=== PATIENT | female | born 1975 | race Caucasian/White ===

== ENCOUNTER 2017-09-25 08:00 | Outpatient (CLI) | payer OTHER ==
[2017-09-25 13:04] LABS: BASOPHILS % (AUTO) 0.5 %; EOSINOPHILS # (AUTO) 0.2 10^3/uL (0.0-0.7); EOSINOPHILS % (AUTO) 2.6 %; HCT - HEMATOCRIT 42.8 % (37.0-47.0); HGB - HEMOGLOBIN 14.4 g/dL (12.0-16.0); LYMPHOCYTES # (AUTO) 2.5 10^3/uL (1.5-3.5); LYMPHOCYTES % (AUTO) 35.8 %; MEAN CORPUSCULAR HEMOGLOBIN 29.3 pg (27.0-31.0); MEAN CORPUSCULAR HGB CONC 33.6 g/dL (32.0-36.0); MEAN CORPUSCULAR VOLUME 87.4 fL (81.0-99.0); MEAN PLATELET VOLUME 9.4 fL (7.9-10.8); MONOCYTES # (AUTO) 0.7 10^3/uL (0.0-1.0); NEUTROPHILS # (AUTO) 3.6 10^3/uL (1.5-6.6); NEUTROPHILS % (AUTO) 51.1 %; NUCLEATED RED BLOOD CELLS AUTO 0.1 /100WBC; RED BLOOD COUNT 4.89 10^6/uL (4.20-5.40); RED CELL DISTRIBUTION WIDTH 13.3 % (12.0-15.0)
[2017-09-25 13:22] LABS: ALBUMIN/GLOBULIN RATIO 1.5 (1.0-2.2); BILIRUBIN,TOTAL 0.7 mg/dL (0.2-1.0); BUN - BLOOD UREA NITROGEN 11 mg/dL (6-20); CALCIUM 9.2 mg/dL (8.5-10.3); CARBON DIOXIDE - CO2 24 mmol/L (21-32); CHLORIDE 107 mmol/L (101-111); CHOL/HDL RATIO 4.9 (<4.4); CHOLESTEROL 167 mg/dL; CREATININE 0.6 mg/dL (0.4-1.0); GFR - MDRD 111 (>89); GLUCOSE 90 mg/dL (70-100); HDL CHOLESTEROL 34 mg/dL; LDL/HDL RATIO 3.3 (<4.4); POTASSIUM 3.9 mmol/L (3.5-5.0); SODIUM 138 mmol/L (135-145); TOTAL PROTEIN 7.6 g/dL (6.7-8.2); TRIGLYCERIDES 103 mg/dL; VLDL CHOLESTEROL 21 mg/dL
== END 2017-09-25 08:01 | disposition home or self-care (01) ==
LOC: LAB.WCP 08:00
PROVIDERS: ATTEND Family Medicine
DX: Z00.00 Encounter for general adult medical examination without abnormal findings (principal); E03.9 Hypothyroidism, unspecified
CPT/HCPCS: 36415; 80053; 80061; 84443; 85025

== ENCOUNTER 2017-10-09 11:35 | Outpatient (CLI) | payer OTHER ==
[2017-10-09 12:20] LABS: BASOPHILS % (AUTO) 0.8 %; BILIRUBIN,URINE NEGATIVE (NEGATIVE); EOSINOPHILS # (AUTO) 0.1 10^3/uL (0.0-0.7); EOSINOPHILS % (AUTO) 2.4 %; HCT - HEMATOCRIT 43.2 % (37.0-47.0); HGB - HEMOGLOBIN 14.9 g/dL (12.0-16.0); LYMPHOCYTES # (AUTO) 2.1 10^3/uL (1.5-3.5); LYMPHOCYTES % (AUTO) 32.7 %; MEAN CORPUSCULAR HEMOGLOBIN 29.9 pg (27.0-31.0); MEAN CORPUSCULAR HGB CONC 34.4 g/dL (32.0-36.0); MEAN CORPUSCULAR VOLUME 86.9 fL (81.0-99.0); MONOCYTES # (AUTO) 0.6 10^3/uL (0.0-1.0); MONOCYTES % (AUTO) 9.3 %; NEUTROPHILS # (AUTO) 3.5 10^3/uL (1.5-6.6); NEUTROPHILS % (AUTO) 54.8 %; NUCLEATED RED BLOOD CELLS AUTO 0.1 /100WBC; PH,URINE 5.5 PH (5.0-7.5); RED BLOOD COUNT 4.97 10^6/uL (4.20-5.40); RED CELL DISTRIBUTION WIDTH 13.6 % (12.0-15.0); UNCORRECTED WHITE BLOOD COUNT 6.4 x10^3/uL; WHITE BLOOD COUNT 6.4 x10^3/uL (4.8-10.8)
== END 2017-10-09 11:36 | disposition home or self-care (01) ==
LOC: LAB 11:35
PROVIDERS: ATTEND Obstetrics & Gynecology
DX: N87.9 Dysplasia of cervix uteri, unspecified (principal)
CPT/HCPCS: 36415; 81003; 85025

== ENCOUNTER 2017-10-11 08:12 | Day surgery (SDC) | payer OTHER ==
[2017-10-11] MEDS ORDERED: LACTATED RINGERS 1,000 ML IV ONE (08:15)
[2017-10-11 08:41] LABS: HCG UR QUAL NEGATIVE
[2017-10-11] MEDS ORDERED: MIDAZOLAM 2 MG/2 ML VIAL IVP ONE (11:15)
[2017-10-11] MEDS ORDERED: ONDANSETRON 4 MG/2 ML VIAL IVP ONE (11:15)
[2017-10-11] MEDS ORDERED: LIDOCAINE-MPF 2% 5 ML VIAL IM ONE (11:15)
[2017-10-11] MEDS ORDERED: PROPOFOL 200 MG/20 ML VIAL IVP ONE (11:15)
[2017-10-11] MEDS ORDERED: KETOROLAC 30 MG/ML VIAL IVP ONE (11:15)
[2017-10-11] MEDS ORDERED: DEXAMETHASONE 4 MG/ML VIAL IVP ONE (11:15)
[2017-10-11] MEDS ORDERED: fentaNYL 100 MCG/2 ML VIAL IVP ONE (11:15)
--- NOTE | 2017-10-11 11:23 | OPERATIVE REPORT ---
Operative Report - General Procedure Date: 10/11/17 Planned Procedure: LEEP Pre-Op Diagnosis: CIN2, Mirena IUD Procedure Performed: LEEP; Minena Remove & Replace Post Op Diagnosis: Same Await Path - Procedure Note Primary Surgeon: MD Pamela Anesthesia Provider: CARL Perez Anesthesia Technique: General ET tube Pathology: yes Estimated Blood Loss (mL): 10 Urine Output (mL): 100 Drain/Tube Type: Other (Str Cath) Complications: None
[2017-10-11 12:20] VITALS: BP 116/62
--- NOTE | 2017-10-11 16:35 | PROCEDURE REPORT ---
DATE OF PROCEDURE: 10/11/2017 00:00:00 PREDELIVERY DIAGNOSES 1. 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 2. Anxiety disorder. 3. Intrauterine device in place. POSTOPERATIVE DIAGNOSES 1. 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 2. Anxiety disorder. 3. Intrauterine device in place. 4. Await pathology. PROCEDURE: Loop electrosurgical excision procedure (LEEP)conization; removal and replacement of intrauterine device. SURGEON: Jamir Santiago MD, FACOG, FICS. ANESTHESIA PROVIDER: Carlin Perez, certified nurse annual giving manager. ANESTHESIA: General, ET tube placed. COMPLICATIONS: None. BLOOD LOSS: Minimal. DRAINS: None. URINE OUTPUT: Patient straight-catheterized prior to procedure of 100 mL of clear urine. FINDINGS 1. Close examination of the vulva and vagina finds no lesions indicative of PORTIA or VaIN. 2. Cervix is inflamed and everted. 3. Uterus prominent, maybe 5 weeks to 6 weeks' size. No lobulations. 4. Adnexa, no mass, mobile ovaries, normal size. SPECIMENS 1. Ectocervix anterior slice, posterior slice, and small side fragment. 2. Endocervix. 3. [id number] curettings. TECHNIQUE: Prior to surgery, we had a family and patient session. The mechanics of the procedure with its risks and benefits were all reviewed. All questions were answered. Consent signed, inclusive of removal and replacement of IUD. Patient was brought to the operating room and placed in supine position. She was uneventfully induced and intubated. She was then moved to the low dorsal lithotomy position. She was prepped and draped. A timeout briefing was done per protocol. Exam under anesthesia was conducted, see findings. A lateral side wall protector was inserted, followed by an electro-safe speculum. A medium sized shallow loop was then selected for ectocervical removal. Power was set at 60/ 60. The cervix was averted to the point that it could not be done in a single loop swipe. First with the anterior portion, a single pass was made. The specimen was marked at 12 o'clock with a stitch. This was repeated uneventfully in the posterior segment. Next, a deeper electrode was used to remove the endocervical canal en bloc, after which a curetting was done. We attempted to replace the previous Mirena IUD; however, it would twist in the canal. A new Mirena IUD applicator was brought to the field and inserted through the endocervical canal and then into the uterine cavity. The insertion tool was activated and the IUD expelled into the uterine cavity. Strings were trimmed to 2 cm. There was one final check of the biopsy site. It was hemostatically secure and estrogen styptic was applied. All instruments were removed. All sponge, needle, and instrument counts were confirmed as correct. Patient was uneventfully awakened from general anesthesia and taken to the recovery room in good condition. Patient was discharged home with instructions and followup appointment in 2 weeks. Discharge medications include: 1. Motrin. 2. [place]. 3. Colace. Patient will call back if she develops fevers, chills, abdominal pain, or foul discharge. JOB #: [id number] EXT JOB #:[id number]
--- NOTE | 2017-10-12 12:20 | HISTORY & PHYSICAL EXAMINATION ---
Chief Complaint - Chief Complaint Chief Complaint: Mrs. Acacia Soriano presents for a LEEP due to high-grade cervical Dysplasia History of Present Illness - Admitted From Admitted From:: Same day surgery admission only - History Obtained From Records Reviewed: Patient has no chronic disease history or cardiovascular disease. - History of Present Illness HPI Comment/Other: Mrs. Acacia Soriano is a 41-year-old woman who is documented HPV 16 and 18 and noted to have an abnormal Pap smear (ASCUS) that necessitated colposcopy. Colposcopy revealed high-grade dysplasia with biopsies consistent with SIMON-2. There was no extension into the canal. More complete diagnosis and treatment are required with high-grade dysplasia. LEEP procedure was selected. Patient has difficulty with anxiety and did not believe she could stay still during the procedure if done in the office. Therefore patient was admitted to same-day surgery for procedure under sedation/anesthesia. Natural history of HPV and precancerous and cancerous changes of the female genital tract was reviewed. All answers are all questions were answered. AC Brochures on LEEP procedure were given and reviewed. Anesthesia risk was explained by construction stonemason. History - Past Medical History Cardiovascular: reports: None Respiratory: reports: None Endocrine/Autoimmune: reports: HyPOthyroidism GI: reports: Ulcers : reports: None HEENT: reports: Chronic vision loss Psych: reports: Depression, Anxiety Musculoskeletal: reports: Chronic back pain Derm: reports: Eczema, Rosacea MRSA Hx?: No Meds/Allgy - Home Medications Home Medications: Ambulatory Orders Medication Instructions Recorded Confirmed Levothyroxine Sodium 50 mcg PO DAILY 10/09/17 10/11/17 - Allergies Allergies/Adverse Reactions: Allergies Allergy/AdvReac Type Severity Reaction Status Date / Time No Known Drug Allergies Allergy Verified 10/09/17 13:55 Issues/Core Measures - DVT/VTE - Prophylaxis Not Ordered - Low Risk: Very low risk VTE/DVT Prophylaxis med ordered at admit?: No Not Ordered - Medical Reason: Not indicated - Stroke - Rehab Assessment Rehab services assessment to be ordered?: No - AMI - Statin at Admit Aspirin Prescribed on Admit: No Physical Exam - Physical Exam General: positive: No acute distress, Anxious HEENT: positive: Atraumatic, EOMI, Moist mucous membranes, Dentition normal Neck: positive: Supple w/out meningeal sx, No adenopathy, Thyroid normal Cardiac: positive: Regular Rate, Normal pulses Resipratory: positive: Clear to ausultation ugo Abdomen: positive: Normal Bowel sounds, Other (Nontender, Obese) Female : positive: Normal external, Other (Biopsy wounds healing well) Neurologic: positive: Alert and Oriented X 3 PSYCH: positive: Anxious Assess/Plan - Patient Problems Active Problems Comments: Patient has biopsy documented high-grade dysplasia with high risk HPV serotyping. LEEP procedure or conization is required.Patient is very anxious and would not be able to comply with a office-based procedure. Therefore procedure was sedation was selected. This history and physical was done the day prior, [id number] September.Please correct the date
--- NOTE | 2017-10-12 13:22 | HISTORY & PHYSICAL EXAMINATION ---
DATE OF ADMISSION: 10/11/2017 DIAGNOSES 1. High-grade dysplasia with SIMON 2 on biopsy. 2. Hypothyroidism. 3. Anxiety disorder. INTENDED PROCEDURE: LEEP procedure with sedation. HISTORY: The patient is a 41-year-old woman who has documented HPV-16 and 18, and noted to have an ab normal/ASCUS Pap smear that necessitated colposcopy. Colposcopy revealed high-grade dysplasia with bi opsies consistent with SIMON 2. No extension into the canal was noted. High-grade dysplasia requires mo re complete diagnosis and treatment with either LEEP or conization. The patient has difficulty with a nxiety and did not believe she could remain still for a LEEP procedure in the office. Therefore, the patient was admitted to Same Day Surgery for procedure under sedation/anesthesia. Natural history of HPV and the relationship to cancerous/precancerous changes in the female genital tract was reviewed. ACOG handouts on HPV, SIMON, and LEEP were given and reviewed. Anesthesia risk was explained by anesthdemario walker. PAST MEDICAL HISTORY: No chronic disease history other than hypothyroidism. No cardiovascular issues. The patient does have anxiety disorder and chronic back pain. ALLERGIES: NO DRUG ALLERGIES. MEDICATIONS: Levothyroxine 50 mcg daily. FAMILY HISTORY: No inheritable diseases noted. SOCIAL HISTORY: . Works. No drug, tobacco or alcohol use. REVIEW OF SYSTEMS CONSTITUTIONAL: Negative. HEENT: Negative. HEART: Negative. PULMONARY: Negative. BREASTS: Negative. GASTROINTESTINAL: Negative. NEURO: Negative. SKIN: Negative. PSYCH: Negative. PHYSICAL EXAMINATION VITAL SIGNS: Normotensive, afebrile. GENERAL: No acute distress, somewhat anxious. HEENT: Supple neck, no thyromegaly. EOMI. Moist membranes. Dentition in good repair. Thyroid normal. HEART: Regular. No murmur, no gallop. RESPIRATORY: Clear to auscultation bilaterally. ABDOMEN: Normal bowel sounds. Obese. GENITOURINARY: Normal external genitalia. No blood or discharge. Biopsy wounds on the cervix. NEUROLOGIC: Alert and oriented x3. SKIN: Negative rash. MUSCULOSKELETAL: Negative other than back pain noted before. PSYCH: The patient seems anxious but this is a known problem. ASSESSMENT: The patient has biopsy-documented high-grade dysplasia with high risk human papillomaviru s serotyping. 16 and 18 serotypes have a very high risk of precancerous and cancerous changes. LEEP p rocedure or conization is required for complete diagnosis and treatment. The patient is anxious and s tates she would not be able to comply with an office-based procedure. Therefore, LEEP under sedation/ anesthesia was selected. PLAN: Informed consent process finished. Patient scheduled for LEEP procedure under sedation on No vember. NOTE: This HandP was done in paper form additionally on the day of surgery, but not found in the docu ments packet. JOB #: [id number] EXT JOB #:[id number]
== END 2017-10-11 08:13 | disposition home or self-care (01) ==
LOC: SDS 08:12
PROVIDERS: ATTEND Obstetrics & Gynecology
PROC: 0U2DXHZ Change Contraceptive Device in Uterus and Cervix, External Approach (ICD-10-PCS; 2017-10-11)
PROC: 0UBC7ZX Excision of Cervix, Via Natural or Artificial Opening, Diagnostic (ICD-10-PCS; principal; 2017-10-11 09:15)
DX: N87.1 Moderate cervical dysplasia (principal); F41.9 Anxiety disorder, unspecified; Z30.433 Encounter for removal and reinsertion of intrauterine contraceptive device
CPT/HCPCS: 57522; 58300; 81025; J7120

== ENCOUNTER 2018-05-23 12:16 | Day surgery (SDC) | payer OTHER ==
[2018-05-23 13:18] LABS: BILIRUBIN,URINE NEGATIVE (NEGATIVE); GLUCOSE, URINE (UA) NEGATIVE (NEGATIVE); KETONES,URINE (UA) NEGATIVE (NEGATIVE); LEUKOCYTE ESTERASE, URINE NEGATIVE (NEGATIVE); NITRITE,URINE NEGATIVE (NEGATIVE); OCCULT BLOOD,URINE NEGATIVE (NEGATIVE); PROTEIN,URINE NEGATIVE (NEGATIVE); UROBILINOGEN,URINE 0.2 (NORMAL) E.U./dL (NORMAL)
[2018-05-23 13:19] LABS: CLARITY,URINE CLEAR (CLEAR)
[2018-05-23] MEDS ORDERED: KETOROLAC 60 MG/2 ML VIAL IM STA (13:36)
[2018-05-23] MEDS ORDERED: ONDANSETRON ODT 4 MG TABLET TL STA (13:36)
[2018-05-23 14:11] LABS: BASOPHILS % (AUTO) 0.4 %; EOSINOPHILS # (AUTO) 0.1 10^3/uL (0.0-0.7); EOSINOPHILS % (AUTO) 0.8 %; HGB - HEMOGLOBIN 13.2 g/dL (12.0-16.0); LYMPHOCYTES # (AUTO) 1.6 10^3/uL (1.5-3.5); LYMPHOCYTES % (AUTO) 15.4 %; MEAN CORPUSCULAR HEMOGLOBIN 29.8 pg (27.0-31.0); MEAN CORPUSCULAR HGB CONC 33.7 g/dL (32.0-36.0); MEAN CORPUSCULAR VOLUME 88.4 fL (81.0-99.0); MONOCYTES # (AUTO) 0.8 10^3/uL (0.0-1.0); MONOCYTES % (AUTO) 7.1 %; NEUTROPHILS # (AUTO) 8.1 10^3/uL (1.5-6.6); NEUTROPHILS % (AUTO) 76.3 %; PLT - PLATELET COUNT 216 10^3/uL (130-450); RED BLOOD COUNT 4.44 10^6/uL (4.20-5.40); RED CELL DISTRIBUTION WIDTH 13.9 % (12.0-15.0); WHITE BLOOD COUNT 10.6 x10^3/uL (4.8-10.8)
[2018-05-23 14:27] LABS: ALBUMIN 3.8 g/dL (3.2-5.5); ALBUMIN/GLOBULIN RATIO 1.1 (1.0-2.2); BILIRUBIN,TOTAL 0.6 mg/dL (0.2-1.0); CALCIUM 8.8 mg/dL (8.5-10.3); CREATININE 0.7 mg/dL (0.4-1.0); TOTAL PROTEIN 7.2 g/dL (6.7-8.2)
--- NOTE | 2018-05-23 15:24 | Ultrasound Report ---
Procedure Date: 05/23/2018 Accession Number: [id number] / [id number] Procedure: US - Pelvic w/Transvag+Doppler Ltd CPT Code: FULL RESULT: EXAM: Pelvic w/Transvag+Doppler Ltd DATE: 05/23/2018 3:09 PM CLINICAL HISTORY: pelvic pain hx of abn pap COMPARISON: None. TECHNIQUE: Realtime transabdominal imaging performed to identify the uterus and adnexa and as an overview of other pelvic structures, followed by transvaginal imaging for better assessment of the endometrium and/or adnexa, with static image documentation. Color flow imaging and Doppler spectral analysis was performed to evaluate blood flow to the ovaries given pain. FINDINGS: Uterus: 17 x 6.8 x 8.8 cm, volume 526 cc. Anteverted position. Enlarged. Masses: None. Endometrium: The endometrium cannot be confidently identified. There is a large amount of hemorrhage within the endometrial canal, as well as an IUD. Mild dilation of the fallopian tubes is also noted, compatible with cervical stenosis and hematocolpos. Cervix: Likely stenotic, given the hematocolpos. Right Ovary: 3.3 x 2.7 x 2.4 cm, volume 11 cc. Normal echotexture. Right Ovary: Arterial and venous blood flow are present. Adnexa are unremarkable. Left Ovary: 4.3 x 2.8 x 1.8 cm, volume 11 cc. Normal echotexture. Left Ovary: Arterial and venous blood flow are present. Adnexa are unremarkable. Free Fluid: None. Other: None. IMPRESSION: 1. Enlarged uterus, with a large amount of hemorrhage within the endometrial canal. Likely cervical stenosis. IUD is present within the endometrial canal. 2. Arterial and venous blood flow are present to the ovaries bilaterally. RADIA
[2018-05-23 16:13] LABS: ALBUMIN 3.8 g/dL (3.2-5.5); ALBUMIN/GLOBULIN RATIO 1.1 (1.0-2.2); BASOPHILS % (AUTO) 0.5 %; BILIRUBIN,TOTAL 0.7 mg/dL (0.2-1.0); CALCIUM 8.9 mg/dL (8.5-10.3); CREATININE 0.7 mg/dL (0.4-1.0); EOSINOPHILS # (AUTO) 0.1 10^3/uL (0.0-0.7); EOSINOPHILS % (AUTO) 0.9 %; HGB - HEMOGLOBIN 13.3 g/dL (12.0-16.0); LYMPHOCYTES % (AUTO) 20.8 %; MEAN CORPUSCULAR HEMOGLOBIN 29.8 pg (27.0-31.0); MEAN CORPUSCULAR HGB CONC 33.5 g/dL (32.0-36.0); MEAN CORPUSCULAR VOLUME 88.9 fL (81.0-99.0); MEAN PLATELET VOLUME 8.2 fL (7.9-10.8); MONOCYTES # (AUTO) 0.6 10^3/uL (0.0-1.0); MONOCYTES % (AUTO) 6.7 %; NEUTROPHILS # (AUTO) 6.7 10^3/uL (1.5-6.6); NEUTROPHILS % (AUTO) 71.1 %; PLT - PLATELET COUNT 225 10^3/uL (130-450); RED BLOOD COUNT 4.47 10^6/uL (4.20-5.40); RED CELL DISTRIBUTION WIDTH 13.3 % (12.0-15.0); TOTAL PROTEIN 7.2 g/dL (6.7-8.2); WHITE BLOOD COUNT 9.4 x10^3/uL (4.8-10.8)
[2018-05-23 16:17] LABS: HCG UR QUAL NEGATIVE
[2018-05-23 16:19] LABS: INR 1.1 (0.8-1.2); PT - PROTHROMBIN TIME 12.6 secs (9.9-12.6)
--- NOTE | 2018-05-23 17:14 | ED Physician Documentation ---
PD HPI FEMALE - Stated complaint Stated Complaint: CRAMPING - Chief complaint Chief Complaint: General - History obtained from History obtained from: Patient, Family - History of Present Illness Timing - onset: How many days ago (4) Timing - details: Gradual onset, Still present Associated symptoms: Pelvic pain Similar symptoms before: Has not had sx before Recently seen: Not recently seen - Additional information Additional information: Patient is a 42 year old female who is presenting to the emergency department for pelvic pain. Patient states that over the last 4 days she has had worsening pain. patient states that it comes and goes and cannot identify aggravating or alleviating factors. Patient denies any discharge or GI complaints. Patient did have a LEEP procedure but no history of any time of cervical CA. Review of Systems Constitutional: denies: Fever, Chills GI: reports: Abdominal Pain. denies: Nausea, Vomiting, Constipation, Diarrhea : denies: Dysuria, Frequency, Vaginal bleeding Immunocompromised: denies: Immunocompromised PD PAST MEDICAL HISTORY - Past Medical History Past Medical History: No Endocrine/Autoimmune: HyPOthyroidism - Past Surgical History Past Surgical History: Yes - Present Medications Home Medications: Ambulatory Orders Medication Instructions Recorded Confirmed Levothyroxine Sodium 50 mcg PO QDAC 10/09/17 05/23/18 - Allergies Allergies/Adverse Reactions: Allergies Allergy/AdvReac Type Severity Reaction Status Date / Time No Known Drug Allergies Allergy Verified 05/23/18 14:10 - Social History Does the pt smoke?: Yes Smoking Status: Current every day smoker Does the pt drink ETOH?: No Does the pt have substance abuse?: No - Immunizations Immunizations are current?: Yes - POLST Patient has POLST: No PD ED PE NORMAL - Vitals Vital signs reviewed: Yes - General General: Alert and oriented X 3, No acute distress - HEENT HEENT: Moist mucous membranes - Cardiac Cardiac: RRR - Respiratory Respiratory: No respiratory distress - Female Female : Deferred - Derm Derm: Normal color - Extremities Extremities: No deformity, Normal ROM s pain - Neuro Neuro: Alert and oriented X 3, No motor deficit, Normal speech Eye Opening: Spontaneous PD ED PE EXPANDED - Abdomen Abdomen: Tender to palpation, Suprapubic. No: Rebound, Guarding Results - Vitals Vitals: Vital Signs - 24 hr 05/23/18 05/23/18 12:22 15:15 Temperature 36.4 C L Heart Rate 71 60 Respiratory 16 16 Rate Blood Pressure 127/72 120/66 O2 Saturation 100 100 Oxygen O2 Source Room air - Labs Labs: Laboratory Tests 05/23/18 05/23/18 05/23/18 12:15 12:55 14:05 WBC 10.6 RBC 4.44 Hgb 13.2 Hct 39.2 MCV 88.4 MCH 29.8 MCHC 33.7 RDW 13.9 Plt Count 216 MPV 8.0 Neut # (Auto) 8.1 H Lymph # (Auto) 1.6 [place] # (Auto) 0.8 Eos # (Auto) 0.1 Baso # (Auto) 0.0 Absolute Nucleated RBC 0.00 Nucleated RBC % 0.0 PT INR APTT Sodium Potassium Chloride Carbon Dioxide Anion Gap BUN Creatinine Estimated GFR (MDRD) Glucose Calcium Total Bilirubin AST ALT Alkaline Phosphatase Total Protein Albumin Globulin Albumin/Globulin Ratio Lipase Urine Color YELLOW Urine Clarity CLEAR Urine pH 6.0 Ur Specific [place] 1.015 1.015 Urine Protein NEGATIVE Urine Glucose (UA) NEGATIVE Urine Ketones NEGATIVE Urine Occult Blood NEGATIVE Urine Nitrite NEGATIVE Urine Bilirubin NEGATIVE Urine Urobilinogen 0.2 (NORMAL) Ur Leukocyte Esterase NEGATIVE Ur Microscopic Review NOT INDICATED Urine Culture Comments NOT INDICATED Urine HCG, Qual NEGATIVE 05/23/18 05/23/18 05/23/18 14:05 15:56 15:56 WBC 9.4 RBC 4.47 Hgb 13.3 Hct 39.8 MCV 88.9 MCH 29.8 MCHC 33.5 RDW 13.3 Plt Count 225 MPV 8.2 Neut # (Auto) 6.7 H Lymph # (Auto) 2.0 [place] # (Auto) 0.6 Eos # (Auto) 0.1 Baso # (Auto) 0.0 Absolute Nucleated RBC 0.00 Nucleated RBC % 0.0 PT 12.6 INR 1.1 APTT 30.6 Sodium 137 Potassium 3.8 Chloride 106 Carbon Dioxide 23 Anion Gap 8.0 BUN 9 Creatinine 0.7 Estimated GFR (MDRD) 93 Glucose 81 Calcium 8.8 Total Bilirubin 0.6 AST 19 ALT 22 Alkaline Phosphatase 57 Total Protein 7.2 Albumin 3.8 Globulin 3.4 Albumin/Globulin Ratio 1.1 Lipase 23 Urine Color Urine Clarity Urine pH Ur Specific [place] Urine Protein Urine Glucose (UA) Urine Ketones Urine Occult Blood Urine Nitrite Urine Bilirubin Urine Urobilinogen Ur Leukocyte Esterase Ur Microscopic Review Urine Culture Comments Urine HCG, Qual 05/23/18 15:56 WBC RBC Hgb Hct MCV MCH MCHC RDW Plt Count MPV Neut # (Auto) Lymph # (Auto) [place] # (Auto) Eos # (Auto) Baso # (Auto) Absolute Nucleated RBC Nucleated RBC % PT INR APTT Sodium 137 Potassium 3.8 Chloride 105 Carbon Dioxide 24 Anion Gap 8.0 BUN 9 Creatinine 0.7 Estimated GFR (MDRD) 93 Glucose 83 Calcium 8.9 Total Bilirubin 0.7 AST 18 ALT 23 Alkaline Phosphatase 61 Total Protein 7.2 Albumin 3.8 Globulin 3.4 Albumin/Globulin Ratio 1.1 Lipase 23 Urine Color Urine Clarity Urine pH Ur Specific [place] Urine Protein Urine Glucose (UA) Urine Ketones Urine Occult Blood Urine Nitrite Urine Bilirubin Urine Urobilinogen Ur Leukocyte Esterase Ur Microscopic Review Urine Culture Comments Urine HCG, Qual - Rads (name of study) pelvic us Radiology: Final report received (enlarged blood filled uterus), Discussed with rads PD MEDICAL DECISION MAKING - ED course Complexity details: reviewed old records, reviewed results, re-evaluated patient , considered differential, d/w patient, d/w weight loss sales consultant ED course: Patient was seen and examined at bedside. labs were drawn and ultrasound was ordered. Patient was treated with zofran and toradol. when patient returned from imaging the radiologist called to discuss the findings. Dr. Santiago was paged. IV access was gained and labs were drawn. case was discussed with Dr. Santiago who agreed to accept the patient and to take the patient to the OR - Sepsis Event Vital Signs: Vital Signs - 24 hr 05/23/18 05/23/18 12:22 15:15 Temperature 36.4 C L Heart Rate 71 60 Respiratory 16 16 Rate Blood Pressure 127/72 120/66 O2 Saturation 100 100 Oxygen O2 Source Room air Departure - Departure Disposition: ED Transfer to [facility] Clinical Impression: Hematocolpos Condition: Stable
[2018-05-23] MEDS ORDERED: LACTATED RINGERS 1,000 ML IV ONE (18:15)
[2018-05-23] MEDS ORDERED: BUPIVACAINE 0.25%-EPI 1:200000 PF 30 ML VIAL SUBQ ONE (18:41)
[2018-05-23] MEDS ORDERED: BUPIVACAINE 0.25%-EPI 1:200000 PF 30 ML VIAL ONE (18:45)
--- NOTE | 2018-05-23 19:14 | OPERATIVE REPORT ---
Operative Report - General Procedure Date: 05/23/18 Planned Procedure: Cervical dilation, evacuation of Hematacolpos / Hematametrium Pre-Op Diagnosis: Cervical stenosis; Mirena IUD; Hematacolpos / Hematametrium Procedure Performed: Incision and drainage of Hematocolpos / hematrometrium, Marsupialization of the same: Exam under anesthesia with exploration of anatomic defect Post Op Diagnosis: Same - Procedure Note Primary Surgeon: Jamir Santiago MD FACOG Anesthesia Provider: Darinel Reyes MD Anesthesia Technique: General LMA Pathology: Tissue sample of unroofed Pelvic hematoma; IUD IV Fluids (mL): 400 Estimated Blood Loss (mL): 50 (Note only 50 cc lost during the actual surgery; 330 cc of old blood contained in the uterus.) Urine Output (mL): 100 Drain/Tube Type: Other (Patient straight cath during the procedure. Iodoform gauze packing left in the defect.) Complications: None
[2018-05-23] MEDS ORDERED: PROPOFOL 200 MG/20 ML VIAL IVP ONE (19:15)
[2018-05-23] MEDS ORDERED: LIDOCAINE-MPF 2% 5 ML VIAL IM ONE (19:15)
[2018-05-23] MEDS ORDERED: HYDROmorphone 1 MG/ML CARPUJECT IVP PRN (20:37)
[2018-05-23] MEDS ORDERED: ONDANSETRON 4 MG/2 ML VIAL IVP PRN (20:38)
[2018-05-23] MEDS ORDERED: LACTATED RINGERS 1,000 ML IV SCH (21:00)
[2018-05-23 21:09] VITALS: BP 113/57
[2018-05-23] MEDS ORDERED: HYDROcod/ACETAM 5/325 MG TABLET PO PRN (21:16)
--- NOTE | 2018-05-23 22:41 | CT Report ---
Procedure Date: 05/23/2018 Accession Number: [id number] / [id number] Procedure: CT - Abdomen/Pelvis W/O CPT Code: FULL RESULT: EXAM: CT ABDOMEN AND PELVIS EXAM DATE: 05/23/2018 10:02 PM. CLINICAL HISTORY: Abdominal surgery. COMPARISONS: PEL NON OB W/TV DOP LTD 05/23/2018. TECHNIQUE: Routine helical CT imaging was performed through the abdomen and pelvis. IV contrast: None. Enteric contrast: No. Reconstructions: Coronal and sagittal. In accordance with CT protocol optimization, one or more of the following dose reduction techniques were utilized for this exam: automated exposure control, adjustment of mA and/or KV based on patient size, or use of iterative reconstructive technique. FINDINGS: Lung Bases: Mild bibasilar atelectasis. Liver: No focal lesion identified on this noncontrast examination. Gallbladder/Bile Ducts: Unremarkable. Spleen: Normal. Pancreas: Normal. Adrenal Glands: Normal. Kidneys: Normal. No masses or hydronephrosis. Peritoneal Cavity/Bowel: Normal sized retroperitoneal lymph nodes. No bowel obstruction seen. No diverticulitis. No free air or free fluid. Appendix appears normal. Pelvic Organs: Endometrial cavity measures about 11 mm in thickness and appears dense, possibly representing blood. Large amount of dense material and air seen in the expected area of the cervix and upper vagina, for example series 4 image 76. This area measures approximately 7.7 x 4.0 cm. Visualized pelvic organs are otherwise unremarkable. Vasculature: No aneurysms or other significant abnormality. Bones: No significant abnormality. Other: None. IMPRESSION: 1. There is a collection of dense material and air in the expected area of the cervix and upper vagina measuring about 7.7 x 4.0 cm, of uncertain etiology. Some type of packing material could have this appearance. Blood clot would be a possibility. 2. Endometrial cavity measures about 11 mm in thickness and appears somewhat dense, which could represent blood. 3. No other acute inflammatory or obstructive process seen in the abdomen or pelvis. RADIA
[2018-05-23] MEDS: IBUPROFEN 600 MG TABLET PO SCH (23:34)
--- NOTE | 2018-05-24 03:36 | OPERATIVE REPORT ---
DATE OF SERVICE: 05/23/2018 Physician: Jamir Santiago MD PREOPERATIVE DIAGNOSES 1. Hematocolpos/hematometra. 2. Cervical stenosis. 3. Mirena intrauterine device. 4. Pelvic pain. PROCEDURE 1. Incision and drainage of hematocolpos/hematometra. 2. Marsupialization of the same. 3. Exam under anesthesia with exploration of anatomic defect. POSTOPERATIVE DIAGNOSES 1. Hematocolpos/hematometra. 2. Cervical stenosis. 3. Mirena intrauterine device. 4. Pelvic pain. 5. Requires further investigation of distorted pelvic anatomy. SURGEON: Jamir Santiago MD, FACOG ANESTHESIA: Darinel Reyes MD ANESTHESIA TYPE: General laryngeal mask airway. PATHOLOGY 1. Tissue from hematocolpos sent with IUD. 2. Curettings. IV FLUIDS: 400. ESTIMATED BLOOD LOSS: 50 (Note only 50 was lost during the actual procedure; however, there was 330 mL of old blood in the hematocolpos). URINE OUTPUT: Estimated 100, patient straight catheterized during the procedure. FINDINGS: Uterine size is enlarged to 12-week size and quite tender on ER examination. There is a 4-cm ball-like bulge in the vaginal apex, with the cervix being completely scarred over, forming an apparent hematocolpos. From ultrasound studies, it is known that there is a hematometra also present with distended fallopian tubes. The upper apex was searched for a possible dimple remnant from her prior LEEP procedure. None was found. After drainage of the hematocolpos hematometra, the uterus was felt above the hematoma cavity. A straight cath was placed in the bladder did not communicate with the cavity. Rectovag exam was done also and there was no rectal communication with the cavity. Within the cavity was the IUD. The cavity was quite deep + 8 cm on sounding. Ovaries were not palpable. TECHNIQUE: The awake patient was brought to the operating room and placed in the supine position for administration of general anesthesia. She was uneventfully induced and LMA was placed. She was then moved to the low dorsal lithotomy position on [facility] stirru. She was prepped and draped in the customary sterile fashion. A timeout briefing was accomplished per protocol. Clamshell speculum was inserted and the hematocolpos was examined. We could not reach around it into the far posterior fornix. Weighted speculum was then placed and again, with anterior Jackman retractor, the extent of the hematocolpos was determined. There was no obvious dimple or finding that suggested the endocervical canal tract. Going posteriorly where it was anticipated the inferior portion of the cervix, a large gauge spinal needle was installed and old blood was obtained. Next, a 1.5-cm circular incision was cut with Bovie around the apex of the hematocolpos. At this point, the IUD was found along with copious clots. We evacuated all the clots. The opening was then explored with fingers and ring forceps. A small scraping was taken since it was uncertain if this was endometrial cavity or cystic defect left from stenosis and hematocolpos. The incision was reefed with an interlocking stitch of 0 chromic. Straight catheter was inserted with a finger in the cavity and no communication was found. Bimanual exam, likewise, was done and there was no rectal communication. At the end of the case, the cavity was packed with 1-inch iodoform gauze. Bleeding was well controlled. The patient's anesthesia was reversed, and she was brought to the recovery room in stable condition. All sponge, needle, and instrument counts were confirmed as correc The hematocolpos/endometrial cavity was packed with sterile iodoform gauze to delineate the cavities extent for CT examination. The cervical remnant was never clearly identified and it is uncertain if the blood filled cavity incorporated part of the lower uterine segment. Intraoperative findings were reviewed with the radiologist, Dr. Greer dave, in preparation for CTs scan and possibly MRI evaluation. After the procedure the intraoperative findings were reviewed with both the patient and her family. TD: 05/23/2018 19:49 EDIS
[2018-05-24] MEDS: IBUPROFEN 600 MG TABLET PO SCH (06:08)
== END 2018-05-24 18:00 | disposition home or self-care (01) ==
LOC: ED 12:16 → MS2 17:00 → SDS 17:00 → OBS 17:00 → SDS 18:34 → MS2 18:34 → SDS 05-24 18:00
PROVIDERS: ATTEND Obstetrics & Gynecology
PROC: 0U9G70Z Drainage of Vagina with Drainage Device, Via Natural or Artificial Opening (ICD-10-PCS; principal; 2018-05-23 16:30)
DX: N89.7 Hematocolpos (principal); N88.2 Stricture and stenosis of cervix uteri; N87.0 Mild cervical dysplasia; N84.0 Polyp of corpus uteri; E03.9 Hypothyroidism, unspecified; F17.200 Nicotine dependence, unspecified, uncomplicated; E66.9 Obesity, unspecified; Z68.37 Body mass index [BMI] 37.0-37.9, adult; G89.29 Other chronic pain; M54.9 Dorsalgia, unspecified
CPT/HCPCS: 36415; 57023; 74176; 76830; 76856; 80053; 81003; 81025; 83690; 85025; 85610; 85730; 93976; 96372; 99283; 99284; A9270; J7120; Q0162; 81001; 87086

== ENCOUNTER 2018-10-23 07:08 | Outpatient (CLI) | payer OTHER ==
[2018-10-23 07:38] LABS: BILIRUBIN,URINE NEGATIVE (NEGATIVE); GLUCOSE, URINE (UA) NEGATIVE (NEGATIVE); KETONES,URINE (UA) NEGATIVE (NEGATIVE); LEUKOCYTE ESTERASE, URINE NEGATIVE (NEGATIVE); NITRITE,URINE NEGATIVE (NEGATIVE); OCCULT BLOOD,URINE NEGATIVE (NEGATIVE); PROTEIN,URINE NEGATIVE (NEGATIVE); UROBILINOGEN,URINE 0.2 (NORMAL) E.U./dL (NORMAL)
[2018-10-23 07:42] LABS: CLARITY,URINE CLEAR (CLEAR); HCG UR QUAL NEGATIVE
[2018-10-23 07:42] LABS: ALBUMIN/GLOBULIN RATIO 1.2 (1.0-2.2); BILIRUBIN,TOTAL 0.8 mg/dL (0.2-1.0); CALCIUM 8.7 mg/dL (8.5-10.3); CREATININE 0.6 mg/dL (0.4-1.0); TOTAL PROTEIN 7.3 g/dL (6.7-8.2)
[2018-10-23 08:22] LABS: BASOPHILS # (AUTO) 0.1 10^3/uL (0.0-0.1); BASOPHILS % (AUTO) 0.8 %; EOSINOPHILS # (AUTO) 0.1 10^3/uL (0.0-0.7); EOSINOPHILS % (AUTO) 1.7 %; HGB - HEMOGLOBIN 13.8 g/dL (12.0-16.0); LYMPHOCYTES # (AUTO) 2.2 10^3/uL (1.5-3.5); LYMPHOCYTES % (AUTO) 32.5 %; MEAN CORPUSCULAR HEMOGLOBIN 29.5 pg (27.0-31.0); MEAN CORPUSCULAR HGB CONC 34.3 g/dL (32.0-36.0); MEAN CORPUSCULAR VOLUME 85.9 fL (81.0-99.0); MEAN PLATELET VOLUME 8.6 fL (7.9-10.8); MONOCYTES # (AUTO) 0.7 10^3/uL (0.0-1.0); MONOCYTES % (AUTO) 10.1 %; NEUTROPHILS # (AUTO) 3.7 10^3/uL (1.5-6.6); NEUTROPHILS % (AUTO) 54.9 %; PLT - PLATELET COUNT 231 10^3/uL (130-450); RED BLOOD COUNT 4.68 10^6/uL (4.20-5.40); RED CELL DISTRIBUTION WIDTH 13.8 % (12.0-15.0); WHITE BLOOD COUNT 6.8 x10^3/uL (4.8-10.8)
== END 2018-10-23 07:09 | disposition home or self-care (01) ==
LOC: LAB 07:08
PROVIDERS: ATTEND Obstetrics & Gynecology
DX: Z01.812 Encounter for preprocedural laboratory examination (principal); N87.9 Dysplasia of cervix uteri, unspecified; N92.5 Other specified irregular menstruation
CPT/HCPCS: 36415; 80053; 81003; 81025; 85025; 86850; 86900; 86901

== ENCOUNTER 2018-10-24 09:11 | Day surgery (SDC) | payer OTHER ==
--- NOTE | 2018-10-22 11:15 | PREOP HISTORY & PHYSICAL ---
DATE OF SERVICE: 10/24/2018 Physician: Jamir Santiago MD INTENDED DATE OF PROCEDURE 10/24/2018 DIAGNOSES 1. 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 2. Status post hematometrium and hematocolpos. 3. Stenotic cervix. 4. Associated pain. HISTORY OF PRESENT ILLNESS: Patient is a 42-year-old , 2, para 2-0-0-2 woman who was discovered to have high-grade dysplasia on colposcopy (09/19/2017). Pathology from biopsies demonstrated SIMON-3 and patient underwent an uneventful LEEP procedure on . Post LEEP Pap smear was normal. However, the patient developed abdominal pain and scant menses. She reported to the emergency room in 05/2018 and was found to have IUD displacement into the cervix with hematometrium and hematocolpos secondary to cervical stenosis. The portion of stenotic cervix was excised and found to contain dysplastic change. Conservative following versus hysterectomy was discussed. Conservative following was not recommended since there was documented endocervical dysplasia, reoccurring cervical stenosis, and inability to monitor a potentially developing cervical malignancy. PAST MEDICAL HISTORY: The patient has well controlled hypothyroidism PAST SURGICAL HISTORY: As outlined above. ALLERGIES: NO KNOWN DRUG ALLERGIES. MEDICATIONS: Levothyroxine 50 mg once daily. SOCIAL HISTORY: , homemaker, smoker. No drug or alcohol use. FAMILY HISTORY: Negative. REVIEW OF SYSTEMS CONSTITUTIONAL: Negative. HEENT: Negative. BREASTS: Negative. CARDIAC: Negative. RESPIRATORY: Negative. GI: Negative. : Reference above. SKIN: Negative. MUSCULOSKELETAL: Negative. NEUROLOGIC: Negative. PSYCHIATRIC: Negative. PHYSICAL EXAMINATION GENERAL: Well-groomed alert and oriented HEENT: Supple neck. No thyromegaly. Dentition in adequate repair. CARDIAC: Regular, no murmur, no gallop. LUNGS: Clear to auscultation. BREASTS: No mass. Symmetric. No discharge. No lymphadenopathy. ABDOMEN: Obese. No organomegaly. No tenderness. EXTERNAL GENITALIA: No lesions. Generous hair distribution. VAGINA: No blood or discharge. Cervix barrel-shaped, but somewhat distorted from LEEP and marsupialization. Adnexae nontender, normal size. EXTREMITIES: Normal range of motion. No calf tenderness. NEUROLOGIC: Grossly intact. Patellar reflexes 2+ and equal. PSYCHOLOGIC: Appropriate. ASSESSMENT: Patient is a 42-year-old woman who has a documented high-grade changes on prior colposcopic biopsies and who underwent a LEEP procedure. Subsequently she developed cervical stenosis that evolved into hematometrium and hematocolpos. I believed that hematometrium developed due to displacement of her Mirena IUD out of the main portion of the endometrial cavity . The patient had a successful marsupialization to relieve pain, provide uterine drainage and reduce her pelvic mass. However, dysplastic change was found on the cervical tissue excised during the marsupialization. Usual Pap surveillance will be inadequate and patient has a documented endocervical dysplasia. She has elected to move forward with a hysterectomy. PLAN: Laparoscopic-assisted vaginal hysterectomy with bilateral salpingectomy. We will conserve the ovaries unless there is evidence of possible malignancy. We discussed risks, benefits, and alternative therapies with patient. Patient does not want to undergo another LEEP procedure. She is aware of risks including blood loss, transfusion, infection, damage to intestines, damage to bladder and urinary tract, and postoperative pain. All questions were answered in detail. ACOG handout on hysterectomy was reviewed with the patient. Preoperatively, patient will receive 3 grams of Ancef. Compression boots will be used. She is anticipated to stay overnight, but may be discharged if she recovers quickly. TD: 10/22/2018 08:51 EDIS
[~2018-10-24 09:11] MED LIST: ceFAZolin 2 GM/50 ML 2 GM/50 ML BAG IV ONE
[2018-10-24] MEDS ORDERED: LACTATED RINGERS 1,000 ML IV ONE ×2 (09:52→12:00)
[2018-10-24] MEDS ORDERED: BUPIVACAINE 0.25%-EPI 1:200000 PF 30 ML VIAL ONE ×2 (09:56→12:45)
--- NOTE | 2018-10-24 10:12 | ANESTHESIA ---
Pre-Anesthesia VS, & Labs - Diagnosis dysplagia, abnormal bleeding - Procedure LAVH w/Bilat salpingoopherectomies Vital Signs: Temp Pulse Resp BP Pulse Ox 36.7 C 83 18 144/87 H 100 10/24/18 09:19 10/24/18 09:19 10/24/18 09:19 10/24/18 09:19 10/24/18 09:19 Height 5 ft 3 in Weight (kg) 97 kg Body Mass Index 37.2 - NPO >8 hours Last Fluid Intake: sips H20 w/syntrhrod 0700 - Is Patient ?: No - Lab Results Lab results reviewed: Yes Home Medications and Allergies Levothyroxine Sodium 50 mcg PO QDAC 10/09/17 Allergies/Adverse Reactions: Allergies Allergy/AdvReac Type Severity Reaction Status Date / Time No Known Drug Allergies Allergy Verified 10/23/18 07:50 Anes History & Medical History - Anesthetic History Anesthesia Complications: reports: No previous complications Family history of Anesthesia Complications: Denies Family history of Malignant Hyperthermia: Denies - Medical History Cardiovascular: reports: None Pulmonary: reports: None Gastrointestinal: reports: None Urinary: reports: None Musculoskeletal: reports: None Endocrine/Autoimmune: reports: HyPOthyroidism Skin: reports: None Smoking Status: Current every day smoker - Surgical History Gynecologic: Dilation and currettage, LEEP (Cervical surgery) Exam General: Alert, Oriented x3, Cooperative Dental: WNL, Other (crown, chipped back tooth at upper left) Mouth Openin Fingerbreadth Neck Mobility: Normal Mallampati classification: II Thyromental Distance: 4-6 cm Respiratory: Lungs clear, Normal breath sounds, No respiratory distress Cardiovascular: Regular rate Neurological: Normal speech Mental/Cognitive Status: Alert/Oriented X3 Cognitive Status: Within normal limits Plan Anesthesia Type: General Consent for Procedure(s) Verified and Reviewed: Yes Code Status: Attempt Resuscitation ASA classification: 2-Mild systemic disease Is this case an emergency?: No
--- NOTE | 2018-10-24 11:01 | OPERATIVE REPORT ---
Operative Report - General Planned Procedure: Laparoscopic hysterectomy with bilateral salpingectomy Pre-Op Diagnosis: Residual SIMON after LEEP procedure;Morbid obesity BMI 38; Procedure Performed: Laparoscopic-assisted vaginal hysterectomy; bilateral salpingectomy; cystoscopy Post Op Diagnosis: Same as above;Pelvic adhesive disease;Await pathology report - Procedure Note Primary Surgeon: Jamir Santiago MD, FACOG, FICS Secondary Surgeon: Jamir Patel MD FACOG Anesthesia Provider: Pj Estrada, certified nurse telecommunications operator Anesthesia Technique: General ET tube Pathology: Uterus and tubes IV Fluids (mL): 1,600 Estimated Blood Loss (mL): 150 Urine Output (mL): 300 Drain/Tube Type: Other (Duncan catheter) Complications: None - Other Other Information/Narrative: Prior to entering the OR, I met the patient and family in the preoperative holding room. We reviewed her informed consent. Our discussion included occasions, mechanics of the procedures, intended benefits, risks /possible complications and alternatives. She is aware of the possibility of blood loss, transfusion, wound infection, damage to bowel, damage to bladder or urinary tract and postoperative pain. She understands that surgery may not remedy all of her problems and over time prolapse could develop. We discussed oophorectomy again and the patient states that she would like to preserve her ovaries unless they appear abnormal. She realizes that visual abnormality does not guarantee pathology and occasionally normal ovaries harbor unseen pathology or can develop pathology in the future. All questions were reviewed and answered. Informed consent paperwork was signed. Patient's medical history and intended procedure was reviewed with anesthesiology and OR staff. JENNIFER Patient was brought into the operating room and placed on the table in the supine position. She was uneventfully induced and intubated. She was moved to the low dorsal lithotomy position on [facility] [place]. Timeout briefing was done per protocol. She was prepped and draped in the customary sterile fashion. Exam under anesthesia was done. A Graves speculum was used to visualize the cervix. The anterior cervical lip was grasped with single-tooth tenaculum. Serial application of Hegar probes was employed to determine the endocervical axis and gently dilate. HUMI uterine manipulator was placed uneventfully. All instruments were then removed from the vagina. Duncan was placed, with clear urine output. After injection of Marcaine quarter percent with epinephrine local, a small incision was placed under the umbilical skin fold. A 5 mm Visiport trocar (Bariatric size) was introduced through the incision and into the abdomen under direct visualization. The abdomen was insufflated with CO2 gas at 12 mm of pressure. Atraumatic entry was confirmed. A 5 mm trocars were uneventfully inserted into the left and right lower quadrant under direct visualization. Patient was placed in deeper Trendelenburg and the abdominal and pelvic contents were assessed. Reference findings section and photos. The right tube was gently placed on medial / superior tension and then using a LigaSure it was uneventfully excised in a stepwise fashion. The right utero- ovarian ligament and round ligament were desiccated and divided. The broad ligament was dissected bluntly and then divided with LigaSure to skeletonize the right uterine vessels. Right uterine vessels and the position of the ureter were identified. Right uterine vessels were desiccated and divided using LigaSure. Blunt & sharp dissection developed the bladder flap using LigaSure. At this point, we converted to the vaginal phase. The abdomen was desufflated of CO2 gas and the legs were moved to a high dorsal lithotomy position. HUMI was removed. The cervix was grasped with Mike clamps and placed on tension. Small aliquots of 0.25% Marcaine with epinephrine were injected around the cervix to create a liquid tourniquet. The cervix was then circumscribed with Bovie's pencil. Blunt and sharp dissection were used to develop the fascia. The posterior compartment was sharply entered and Stiner speculum placed. Anterior component was sharply entered and goal Homer retractor placed. Remnants of the uterosacral ligament were clamped, transected and transfixed with 0 Vicryl. Cardinal ligament, paracervical tissue was clamped, transected and transfixed with 0 Vicryl. At this point, the uterus was uneventfully delivered through the colpotomy wound. McCalls Culdoplasty The 0 Vicryl sutures containing the previously identified uterosacral ligaments were placed on tension and palpated. For postoperative comfort, 5 cc of quarter percent Marcaine with epinephrine were injected into each. A series of 2 Wise's sutures of 2-0 Ethibond were placed to plicate the uterosacral ligaments together thereby creating secure apical support for the vaginal cuff. The distal 0 Vicryl stitches ensnaring the uterosacral ligaments were then sutured onto the underside of the vaginal mucosa for cuff fixation. Hemostasis was confirmed. The vaginal cuff mucosa was closed with a running stitch of 0 chromic Cystoscopy 70 degree video cystoscope was calibrated and white balanced. The cystoscope was passed through the urethra and into the bladder cavity. Bladder was insufflated with sterile normal ceric saline. Systematic inspection revealed no encroachment on the bladder such as stitches or perforation. Both ureters were patent with free flow of urine. Photographs were taken to document the same Final Laparcopy Billie's culdoplasty description postoperatively laparoscopy was performed. The cuff was completely closed and ovarian operative sites were dry. The pelvic floor was doubly lavaged with warm normal saline. A bleeding vessel was identified on the right cuff corner and was stanched with LigaSure bipolar current. After which observation over 2 minutes confirmed hemostasis. At this point the procedure was completed. Laparoscopic trocar sleeves were withdrawn under direct visualization. All sponge needle and instrument counts were confirmed as correct. Laparoscopic wounds were closed with subcuticular stitches of 4-0 Monocryl and dressed with Dermabond. At this point the procedure was terminated. Patient was brought to the postsurgical recovery room in good condition. It is anticipated that she will stay overnight on extended stay. Intraoperative medications 1. Ancef 2 g IV piggyback 2. Methicillin B Aby 1 ampoule 3. Toradol 30 mg IM Surgical findings 1. The cervix is distorted and scarred from the prior colpotomy and marsupialization. The cervical barrel is long enough and provides adequate landmarks for completion of vaginal hysterectomy. There was mild cervicitis but no gross cervical lesions. 2. The uterus was enlarged to 5-6 weeks size but had no obvious myometrial irregularity. 3. Ovaries had justa-ovarian filmy adhesions bilaterally. There was no purulent material or evidence of active PID. Cystic accession present with no suspicious excrescence. 4. Vagina had no lesions but a grade 1 cystorectocele was present with a 3-4 cm enterocele. Latosha Culdoplasty remedied enterocele.
[2018-10-24] MEDS ORDERED: BUPIVACAINE 0.25%-EPI 1:200000 PF 10 ML VIAL SUBQ ONE (11:40)
[2018-10-24] MEDS ORDERED: IBUPROFEN 600 MG TABLET PO SCH (12:00)
[2018-10-24] MEDS ORDERED: METHYLENE BLUE 0.5% 50 MG/10 ML AMPULE ONE ×2 (12:54→12:58)
[2018-10-24] MEDS ORDERED: HYDROcod/ACETAM 5/325 MG TABLET PO PRN (13:04)
[2018-10-24] MEDS ORDERED: HYDROmorphone 1 MG/ML CARPUJECT IVP ONE (13:07)
[2018-10-24] MEDS ORDERED: LIDOCAINE-MPF 2% 5 ML VIAL IM ONE (13:07)
[2018-10-24] MEDS ORDERED: KETOROLAC 30 MG/ML VIAL IVP ONE (13:07)
[2018-10-24] MEDS ORDERED: fentaNYL 250 MCG/5 ML VIAL IVP ONE (13:07)
[2018-10-24] MEDS ORDERED: ONDANSETRON 4 MG/2 ML VIAL IVP ONE (13:07)
[2018-10-24] MEDS ORDERED: PROPOFOL 200 MG/20 ML VIAL IVP ONE (13:07)
[2018-10-24] MEDS ORDERED: MIDAZOLAM 2 MG/2 ML VIAL IVP ONE (13:07)
[2018-10-24] MEDS ORDERED: ROCURONIUM 50 MG/5 ML VIAL IVP ONE (13:07)
[2018-10-24] MEDS ORDERED: DEXAMETHASONE 4 MG/ML VIAL IVP ONE (13:07)
[2018-10-24] MEDS ORDERED: NEOSTIGMINE 1 MG/1 ML 10 ML MDV IVP ONE (13:07)
[2018-10-24] MEDS ORDERED: GLYCOPYRROLATE 1 MG/5 ML VIAL IVP ONE (13:07)
[2018-10-24] MEDS: fentaNYL 100 MCG/2 ML VIAL ONE ×2 (14:02→14:11)
[2018-10-24] MEDS ORDERED: ACETAMINOPHEN 1,000 MG/100 ML 100 ML IV ONE (14:28)
[2018-10-24] MEDS ORDERED: LACTATED RINGERS 1,000 ML IV SCH (15:00)
[2018-10-24 16:09] VITALS: BP 122/60
--- NOTE | 2018-10-24 16:42 | PROVIDER PROGRESS NOTE ---
Subjective - Prog Note Date Prog Note Date: 10/24/18 - Subjective Pt reports feeling: Improved Subjective: Mrs. Soriano is a 42-year-old woman who under went a uneventful LAVH with bilateral salpingectomy at noontime today. Total blood loss was 150. Thus far she is done very well ambulating and taking both solid and liquid nutrition. We are just discontinuing her Duncan catheter. She strongly desires discharge home. Vital signs and abdominal exam are normal. We reviewed warning sign and callback instructions. Patient is previously picked up her analgesia meds. She will be seen in 2 weeks for postoperative wound check Plan discharge at this time. Patient must demonstrate the ability to void prior to discharge. Objective - Vital Signs/Intake & Output Vital Signs: Vital Signs x48h Temp Pulse Resp BP Pulse Ox 10/24/18 16:06 97.9 F 76 18 122/60 100 10/24/18 15:00 67 15 108/57 L 96 10/24/18 14:45 70 14 123/83 H 95 10/24/18 14:30 97.3 F L 85 14 120/56 L 100 10/24/18 14:15 97.5 F L 92 14 116/65 93 10/24/18 14:05 97.5 F L 93 16 119/68 92 10/24/18 14:00 97.5 F L 90 15 119/65 96 10/24/18 13:50 97.2 F L 74 16 125/70 100 10/24/18 13:45 68 17 131/74 H 100 10/24/18 13:42 97.2 F L 70 15 127/74 100 10/24/18 09:19 98.1 F 83 18 144/87 H 100 Intake & Output: Intake & Output 10/21/18 10/22/18 10/23/18 10/24/18 23:59 23:59 23:59 23:59 Intake Total 1700 Output Total 300 Balance 1400
--- NOTE | 2018-10-24 16:46 | Discharge Plan ---
Discharge Plan Disposition: 01 Home, Self Care Condition: Good Diet: Regular Activity Restrictions: Activity as Tolerated Shower Restrictions: No Driving Restrictions: No (Patient not to drive while taking narcotics) Weight Bearing: Full Weight No Smoking: If you smoke, Please STOP! Call for help. Follow-up with: Iliana Durant DO [Primary Care Provider] - Jamir Santiago MD [Provider Admit Priv/Credential] -
[2018-10-25] MEDS ORDERED: DOCUSATE SODIUM 250 MG CAPSULE PO SCH (09:00)
[2018-10-25] MEDS ORDERED: LACTULOSE 10 GM /15 ML UDC PO SCH (09:00)
== END 2018-10-24 17:30 | disposition home or self-care (01) ==
LOC: SDS 09:11 → OBS 14:52 → SDS 17:30
PROVIDERS: ATTEND Obstetrics & Gynecology
PROC: 0UQF8ZZ Repair Cul-de-sac, Via Natural or Artificial Opening Endoscopic (ICD-10-PCS; 2018-10-24)
PROC: 0UT9FZZ Resection of Uterus, Via Natural or Artificial Opening With Percutaneous Endoscopic Assistance (ICD-10-PCS; principal; 2018-10-24 12:15)
PROC: 0UT7FZZ Resection of Bilateral Fallopian Tubes, Via Natural or Artificial Opening With Percutaneous Endoscopic Assistance (ICD-10-PCS; 2018-10-24 12:15)
DX: N87.0 Mild cervical dysplasia (principal); N81.5 Vaginal enterocele; N92.5 Other specified irregular menstruation; N88.2 Stricture and stenosis of cervix uteri; E03.9 Hypothyroidism, unspecified; E66.01 Morbid (severe) obesity due to excess calories; N81.12 Cystocele, lateral; Z68.38 Body mass index [BMI] 38.0-38.9, adult
CPT/HCPCS: 57268; 58552; A9270; J0131; J0690; J1170; J3010; J7120

== ENCOUNTER 2021-04-07 08:00 | Outpatient (CLI) | payer BC, OTHER ==
[2021-04-07 21:02] LABS: BACTERIAL VAGINOSIS DNA POSITIVE (NEGATIVE); CANDIDA GLABRATA DNA NEGATIVE (NEGATIVE); CANDIDA GROUP DNA POSITIVE (NEGATIVE); CANDIDA KRUSEI DNA NEGATIVE (NEGATIVE); TRICHOMONAS VAGINALIS DNA NEGATIVE (NEGATIVE)
== END 2021-04-07 23:59 | disposition home or self-care (01) ==
LOC: LAB.N 08:00
PROVIDERS: ATTEND Physician Assistant Medical
DX: R30.0 Dysuria (principal)
CPT/HCPCS: 87086; 87661; 87801

== ENCOUNTER 2022-07-28 08:00 | Outpatient (CLI) | payer OTHER ==
--- NOTE | 2022-07-28 15:13 | XRAY Report ---
PROCEDURE: Ribs w/PA Chest LT INDICATIONS: LEFT RIB PAIN TECHNIQUE: 2 views of the left ribs were acquired, along with a single view chest. COMPARISON: None FINDINGS: Surgical changes and devices: None. Bones and chest wall: No fractures or dislocations. No suspicious bony lesions. Overlying soft tis sues appear unremarkable. Lungs and pleura: No pleural effusions or pneumothorax. Lungs appear clear. Mediastinum: Mediastinal contours appear normal. Heart size is normal. IMPRESSION: Negative PA chest and left rib detail films. Reviewed by: Colin Nguyen MD on 07/28/2022 3:12 PM PDT Approved by: Colin Nguyen MD on 07/28/2022 3:12 PM PDT Station ID: [id number]
== END 2022-07-28 23:59 | disposition home or self-care (01) ==
LOC: DI.N 08:00
PROVIDERS: ATTEND Registered Nurse
DX: R07.81 Pleurodynia (principal)

== ENCOUNTER 2022-10-28 10:04 | Outpatient (CLI) | payer OTHER ==
[2022-10-28 12:40] LABS: BASOPHILS # (AUTO) 0.1 10^3/uL (0.0-0.1); BASOPHILS % (AUTO) 0.7 %; EOSINOPHILS # (AUTO) 0.2 10^3/uL (0.0-0.7); EOSINOPHILS % (AUTO) 2.7 %; HCT - HEMATOCRIT 44.1 % (37.0-47.0); HGB - HEMOGLOBIN 14.6 g/dL (12.0-16.0); LYMPHOCYTES # (AUTO) 1.8 10^3/uL (1.5-3.5); LYMPHOCYTES % (AUTO) 25.3 %; MEAN CORPUSCULAR HGB CONC 33.1 g/dL (32.0-36.0); MEAN CORPUSCULAR VOLUME 90.6 fL (81.0-99.0); MEAN PLATELET VOLUME 10.6 fL (7.9-10.8); MONOCYTES # (AUTO) 0.7 10^3/uL (0.0-1.0); MONOCYTES % (AUTO) 10.4 %; NEUTROPHILS # (AUTO) 4.2 10^3/uL (1.5-6.6); NEUTROPHILS % (AUTO) 60.5 %; PLT - PLATELET COUNT 244 10^3/uL (130-450); RED BLOOD COUNT 4.87 10^6/uL (4.20-5.40); RED CELL DISTRIBUTION WIDTH 13.8 % (12.0-15.0); WHITE BLOOD COUNT 6.9 x10^3/uL (4.8-10.8)
[2022-10-28 12:45] LABS: ALBUMIN 3.9 g/dL (3.2-5.5); ALBUMIN/GLOBULIN RATIO 1.1 (1.0-2.2); ALKALINE PHOSPHATASE 51 IU/L (42-121); ALT ALANINE AMINOTRANSFERASE 43 IU/L (10-60); AST ASPARTATE AMINOTRANSFERASE 23 IU/L (10-42); BILIRUBIN,TOTAL 0.5 mg/dL (0.2-1.0); BUN - BLOOD UREA NITROGEN 13 mg/dL (6-20); CARBON DIOXIDE - CO2 25 mmol/L (21-32); CHLORIDE 105 mmol/L (101-111); CHOL/HDL RATIO 4.1 (<4.4); CHOLESTEROL 162 mg/dL; CREATININE 0.7 mg/dL (0.4-1.0); GFR - MDRD 91 (>89); GLUCOSE 100 mg/dL (70-100); HDL CHOLESTEROL 40 mg/dL; LDL CHOLESTEROL,CALCULATED 99 mg/dL; LDL/HDL RATIO 2.5 (<4.4); POTASSIUM 4.2 mmol/L (3.5-5.0); SODIUM 139 mmol/L (135-145); TOTAL PROTEIN 7.3 g/dL (6.7-8.2); TRIGLYCERIDES 114 mg/dL; VLDL CHOLESTEROL 23 mg/dL
[2022-10-28 12:54] LABS: THYROID STIMULATING HORMONE 2.08 uIU/mL (0.34-5.60)
== END 2022-10-28 10:05 | disposition home or self-care (01) ==
LOC: LAB.N 10:04
PROVIDERS: ATTEND Physician Assistant
DX: E03.9 Hypothyroidism, unspecified (principal); Z72.0 Tobacco use; Z13.220 Encounter for screening for lipoid disorders
CPT/HCPCS: 36415; 80053; 80061; 83721; 84443; 85025